=== PATIENT | male | born 1980 ===

== ENCOUNTER 2022-08-31 17:48 | Emergency (ER) | payer SELFPAY | END 2022-08-31 18:14 | disposition home or self-care (01) | LOC: MW.ED 17:48 | DX: Z02.89 Encounter for other administrative examinations (principal) | CPT/HCPCS: 99283 ==

== ENCOUNTER 2022-09-07 01:24 | Emergency (ER) | payer SELFPAY | END 2022-09-07 01:25 | LOC: MW.ED 01:24 | DX: F10.129 Alcohol abuse with intoxication, unspecified (principal) | CPT/HCPCS: 70450; 72125; 99284 ==

== ENCOUNTER 2023-07-21 17:56 | Emergency (ER) | payer SELFPAY | END 2023-07-21 18:05 | LOC: MW.ED 17:56 | DX: Z02.89 Encounter for other administrative examinations (principal) | CPT/HCPCS: 99282; 99284 ==

== ENCOUNTER 2023-07-23 19:45 | Emergency (ER) | payer SELFPAY | END 2023-07-23 22:18 | LOC: MW.ED 19:45 | DX: Z02.89 Encounter for other administrative examinations (principal) | CPT/HCPCS: 99282; 99283 ==

== ENCOUNTER 2023-07-24 14:03 | Emergency (ER) | payer SELFPAY ==
[2023-07-24 14:28] LABS: BASOPHILS PERCENT AUTO 0.3 % (0.0-1.5); EOSINOPHILS ABSOLUTE AUTO 0.1 K/uL (0.0-0.7); EOSINOPHILS PERCENT AUTO 0.4 % (0.0-7.0); HEMATOCRIT 32.2 % (38.0-50.0); HEMOGLOBIN 10.9 g/dL (13.0-17.0); LYMPHOCYTES ABSOLUTE AUTO 3.1 K/uL (0.6-2.4); LYMPHOCYTES PERCENT AUTO 27.6 % (16.0-40.0); MEAN CORPUSCULAR HEMOGLOBIN 29.8 pg (27.0-32.0); MEAN CORPUSCULAR HGB CONC 33.9 g/dL (31.0-37.0); MONOCYTES ABSOLUTE AUTO 0.5 K/uL (0.0-0.8); MONOCYTES PERCENT AUTO 4.8 % (0.0-15.0); NEUTROPHILS ABSOLUTE AUTO 7.5 K/uL (1.4-5.7); NEUTROPHILS PERCENT AUTO 66.9 % (48.0-80.0); NRBC ABSOLUTE 0 K/uL; PLATELET COUNT,PLT 250 K/uL (150-400); RED BLOOD CELL COUNT 3.66 M/uL (4.50-5.90); WHITE BLOOD CELL COUNT,WBC 11.21 K/uL (4.0-11.0)
[2023-07-24 14:30] LABS: APPEARANCE,URINE CLEAR; BILIRUBIN,URINE NEGATIVE (NEGATIVE); GLUCOSE,URINE NEGATIVE (NEGATIVE); KETONES,URINE NEGATIVE (NEGATIVE); LEUKOCYTE ESTERASE,URINE NEGATIVE (NEGATIVE); NITRITE,URINE NEGATIVE (NEGATIVE); OCCULT BLOOD,URINE NEGATIVE (NEGATIVE); PH,URINE 5.5 (5.0-8.0); PROTEIN,URINE NEGATIVE (NEGATIVE); UROBILINOGEN,URINE 0.2 EU/dL (<2.0)
[2023-07-24] MEDS: Sodium Chloride 0.9% 1,000 ML IV ONE (14:31)
[2023-07-24 14:36] LABS: COLOR,URINE STRAW
[2023-07-24 14:56] LABS: A/G RATIO 0.9 (0.9-1.6); ALBUMIN 2.9 g/dL (3.4-5.0); BILIRUBIN TOTAL 0.2 mg/dL (0.2-1.0); CREATININE 0.7 mg/dL (0.8-1.3); EST CRCL DRUG DOSING (CG) 133.65 mL/min; MAGNESIUM 1.5 mg/dL (1.8-2.4); POTASSIUM,K 3.3 mmol/L (3.5-5.1); PROTEIN TOTAL,TP 6.2 g/dL (6.4-8.2)
== END 2023-07-24 15:43 | disposition home or self-care (01) ==
LOC: MW.ED 14:03
DX: E86.0 Dehydration (principal); Z02.89 Encounter for other administrative examinations; Z76.5 Malingerer [conscious simulation]
CPT/HCPCS: 36415; 71045; 80053; 81003; 82550; 83735; 84484; 85025; 93005; 96360; 99284; J7030; 93010; 99282